=== PATIENT | male | born 1960 | race Caucasian/White ===

== ENCOUNTER 2019-07-08 09:06 | Inpatient (IN) | payer MEDICARE ==
[~2019-07-08] VITALS: Ht 177.8 cm; Wt 111.4 kg
[~2019-07-08 09:06] MED LIST: BACITRACIN 50,000 UNIT ONE; BENA40TA3 PO; BUPIVACAINE/PF 0.5% ONE; EPINEPHRINE 1 MG/ML, 1ML ONE; LEVO75TA5 PO; NIFE30TA13 PO; THROMBIN 5,000 UNIT VIAL TP ONE
[2019-07-08 09:33] VITALS: BP 151/113
[2019-07-08] MEDS ORDERED: LACTATED RINGERS 1,000 ML IV SCH (10:08)
[2019-07-08] MEDS ORDERED: MIDAZOLAM 1 MG/ML, 2ML ONE (11:37)
[2019-07-08] MEDS ORDERED: FENTANYL PF 250 MCG/5ML ONE ×2 (11:37→13:52)
[2019-07-08] MEDS ORDERED: VANCOMYCIN 1,000 MG ONE (12:04)
[2019-07-08] MEDS ORDERED: PROPOFOL 10 MG/ML, 20ML ONE (12:50)
[2019-07-08] MEDS ORDERED: ONDANSETRON 2MG/ML, 2ML ONE (12:50)
[2019-07-08] MEDS ORDERED: DEXAMETHASONE 4 MG/ML, 1ML ONE ×2 (12:50)
[2019-07-08] MEDS ORDERED: ROCURONIUM 10MG/ML,5ML ONE (12:50)
[2019-07-08] MEDS ORDERED: BUPIVACAINE LIPOSOME/PF 10ML INFIL ONE ×2 (13:23→13:30)
[2019-07-08] MEDS ORDERED: DIAZEPAM 5 MG/ML, 2ML IVPush PRN (13:30)
[2019-07-08] MEDS ORDERED: HYDROmorphone 2 MG/ML, 1ML IVPush PRN (13:30)
[2019-07-08] MEDS ORDERED: PROMETHAZINE 25 MG/ML, 1ML IV PRN (13:30)
[2019-07-08] MEDS ORDERED: FENTANYL PF 100 MCG/2ML IV PRN (13:30)
[2019-07-08] MEDS ORDERED: LABETALOL 5MG/ML, 20ML IV PRN (13:30)
[2019-07-08] MEDS ORDERED: OXYcodone 5 MG/5 ML ORAL.SOL UDC PO PRN (13:30)
[2019-07-08] MEDS ORDERED: ONDANSETRON 2MG/ML, 2ML IV PRN (13:30)
[2019-07-08] MEDS ORDERED: MEPERIDINE/PF 25MG/ML,1ML IVPush PRN (13:30)
[2019-07-08] MEDS ORDERED: hydrALAzine 20 MG/ML, 1ML IV PRN (13:30)
[2019-07-08] MEDS ORDERED: ACETAMINOPHEN 325 MG TABLET PO PRN (13:30)
[2019-07-08] MEDS ORDERED: FENTANYL PF 100 MCG/2ML ONE (14:09)
[2019-07-08] MEDS ORDERED: BUPIVACAINE 0.25% ONE (14:10)
[2019-07-08] MEDS ORDERED: ONDANSETRON 2MG/ML, 2ML IVPush PRN (15:00)
[2019-07-08] MEDS ORDERED: PHARMACY MAY ADJ FOR RENAL FX MC PRN (15:00)
[2019-07-08] MEDS ORDERED: OXYcodone/APAP 5/325MG TABLET PO PRN (15:00)
[2019-07-08] MEDS ORDERED: DIPHENHYDRAMINE 50 MG/ML, 1ML IVPush PRN (15:00)
[2019-07-08] MEDS ORDERED: SENNA/DOCUSATE TABLET PO PRN (15:00)
[2019-07-08] MEDS ORDERED: CYCLOBENZAPRINE 10 MG TABLET PO PRN (15:00)
[2019-07-08] MEDS ORDERED: HYDROcodone/APAP 5/325 TABLET PO PRN (15:00)
[2019-07-08] MEDS ORDERED: MAGNESIUM HYDROXIDE 8%, 30ML UDC PO PRN (15:00)
[2019-07-08] MEDS ORDERED: PROMETHAZINE 25 MG/ML, 1ML IM PRN (15:00)
[2019-07-08] MEDS ORDERED: METHOCARBAMOL 750 MG TABLET PO PRN (15:00)
[2019-07-08] MEDS ORDERED: morphine SULFATE 10 MG/ML, 1ML IVPush PRN (15:00)
[2019-07-08] MEDS ORDERED: OXYcodone 5 MG/5 ML ORAL.SOL UDC ONE (15:05)
[2019-07-08 15:40] VITALS: BP 145/93
[2019-07-08] MEDS: D5%-0.9% NACL+KCL 20MEQ 1,000 ML IV SCH (17:00)
[2019-07-08 18:58] VITALS: BP 142/89
[2019-07-08] MEDS: HYDROcodone/APAP 10/325 MG TABLET PO PRN (19:27)
[2019-07-08] MEDS: SODIUM CHLORIDE FLUSH 10ML SYR IVF SCH (20:54)
[2019-07-08] MEDS: CEFAZOLIN PMX 1GM/50ML 50 ML IVPB SCH (20:54)
[2019-07-09 01:35] VITALS: BP 155/91
[2019-07-09] MEDS: HYDROcodone/APAP 10/325 MG TABLET PO PRN (02:33)
[2019-07-09] MEDS: D5%-0.9% NACL+KCL 20MEQ 1,000 ML IV SCH (03:42)
[2019-07-09] MEDS: CEFAZOLIN PMX 1GM/50ML 50 ML IVPB SCH (05:39)
[2019-07-09 05:56] LABS: BASOPHILS # (AUTO) 0.02 x10^3/uL (0-0.1); BASOPHILS % (AUTO) 0 % (0-1); EOSINOPHILS % (AUTO) 0 % (1-7); LYMPHOCYTES # (AUTO) 1.05 x10^3/uL (1-3.4); LYMPHOCYTES % (AUTO) 9 % (22-44); MD NO; MEAN CORPUSCULAR HEMOGLOBIN 31.8 pg (27.5-34.5); MEAN CORPUSCULAR HGB CONC 33.4 g/dL (33.2-36.2); MEAN PLATELET VOLUME 9.9 fL (7.4-10.4); MONOCYTES # (AUTO) 0.98 x10^3/uL (0.2-0.8); MONOCYTES % (AUTO) 9 % (2-9); NEUTROPHILS # (AUTO) 9.17 x10^3/uL (1.8-6.8); NEUTROPHILS % (AUTO) 82 % (42-75); PLATELET COUNT 163 x10^3/uL (130-400); RED BLOOD COUNT 4.69 x10^6/uL (4.38-5.82); RED CELL DISTRIBUTION WIDTH 13.1 % (9.4-14.8)
[2019-07-09] MEDS ORDERED: LEVOTHYROXINE 75 MCG TABLET PO SCH (06:00)
[2019-07-09 06:52] VITALS: BP 129/82
[2019-07-09] MEDS ORDERED: DOXY100T PO (08:25)
[2019-07-09] MEDS ORDERED: CYCL-259 PO (08:25)
[2019-07-09] MEDS ORDERED: HYDR-36 PO (08:25)
[2019-07-09] MEDS ORDERED: niFEDipine ER 30 MG TABLET.ER PO SCH (09:00)
[2019-07-09] MEDS: SODIUM CHLORIDE FLUSH 10ML SYR IVF SCH (09:00)
[2019-07-09] MEDS ORDERED: BENAZEPRIL 20 MG TABLET PO SCH (09:00)
== END 2019-07-09 10:37 | disposition home or self-care (01) | DRG 517 ==
LOC: OR 09:06 → 4NE 09:16 → OR 15:40
PROVIDERS: ADMIT Neurological Surgery; ATTEND Neurological Surgery
PROC: 01NB0ZZ Release Lumbar Nerve, Open Approach (ICD-10-PCS; principal; 2019-07-08 12:30)
DX: M48.062 Spinal stenosis, lumbar region with neurogenic claudication (principal); M54.16 Radiculopathy, lumbar region; G89.29 Other chronic pain; I10 Essential (primary) hypertension; E03.9 Hypothyroidism, unspecified; Z88.0 Allergy status to penicillin; Z88.8 Allergy status to other drugs, medicaments and biological substances; E88.2 Lipomatosis, not elsewhere classified
CPT/HCPCS: 36415; 72100; 85025; G0378; J0171; J0690; J1100; J2250; J2405; J2704; J3010; J3370; J3490; J3480